=== PATIENT | female | born 1995 | race Caucasian/White ===

== ENCOUNTER → 2018-12-06 | Outpatient (CLI) | payer OTHER ==
[~2018-12-06] MED LIST: METHACHOLINE KIT (J7674) INH ONE
--- NOTE | 2018-12-06 08:26 | PFTRPT ---
Height: 59.00 Inches Weight: 150.00 Lbs BSA: 1.63 Diagnosis: COUGH DATE OF PROCEDURE: 12/06/2018 ORDERED BY: Florian Albert Spirometry: Study of excellent technical quality. Forced vital capacity normal. FEV1 in proportion. Obstructive index is, therefore, normal. Flow Volume Loop: Expiratory limb of the flow volume loop is normal. Lung Volumes: Total lung capacity normal. Residual volume is in proportion. Diffusing Capacity: Diffusing capacity normal. Airway Mechanics: Airway resistance and conductance reasonably normal. IMPRESSION: Essentially normal study. MTDD
--- NOTE | 2018-12-06 09:05 | PFTRPT ---
Height: 59.00 Inches Weight: 150.00 Lbs BSA: 1.63 Diagnosis: COUGH DATE OF PROCEDURE: 12/06/2018 ORDERED BY: Florian Albert INTERPRETATION: Excellent technical quality. Under protocol, methacholine was administered. At a dose of 10 mg or 63.875 CDUs, a 22% decline in the FEV1 was noted. PC of 6.68 does meet the criteria for a positive study. Flow rates did return to baseline post bronchodilator administration. IMPRESSION: Positive methacholine challenge study. MTDD
== END ==
LOC: M CARPUL 07:57
PROVIDERS: ATTEND Family Medicine
DX: R94.2 Abnormal results of pulmonary function studies (principal)
CPT/HCPCS: 94010; 94070; 94726; 94729; J7674